=== PATIENT | female | born 1960 | race African-American/Black ===

== ENCOUNTER 2020-01-17 07:11 | Day surgery (SDC) | payer OTHER ==
[2020-01-13 17:33] VITALS: BMI 31.8
[~2020-01-17 07:11] MED LIST: BUPIVACAINE HCL/PF 0.25% (2.5MG/ML) 10 ML VIAL IJ ONE
[2020-01-17] MEDS ORDERED: MIDAZOLAM HCL 2 MG/2 ML SINGLE DOSE VIAL ONE (08:36)
[2020-01-17] MEDS ORDERED: PROPOFOL 20 ML ONE ×2 (08:37)
[2020-01-17] MEDS ORDERED: DEXAMETHASONE SOD PHOSPHATE 4 MG/1 ML VIAL ONE (08:38)
[2020-01-17] MEDS ORDERED: ONDANSETRON 4 MG/2 ML VIAL ONE (08:38)
[2020-01-17] MEDS ORDERED: oxyCODONE HCL 5 MG TABLET PO PRN ×2 (09:01)
[2020-01-17] MEDS ORDERED: ONDANSETRON 4 MG/2 ML VIAL IVPUSH PRN (09:01)
[2020-01-17] MEDS ORDERED: SODIUM CHLORIDE 0.9% P/F 10 ML VIAL IJ ONE (09:13)
[2020-01-17] MEDS ORDERED: ceFAZolin SODIUM 1 GM VIAL ONE (09:13)
[2020-01-17] MEDS ORDERED: LACTATED RINGERS SOLUTION 1,000 ML IV SCH (09:15)
[2020-01-17] MEDS ORDERED: GLYCOPYRROLATE 0.2 MG/1 ML VIAL ONE (09:49)
[2020-01-17] MEDS ORDERED: LIDOCAINE HCL 4% TOPICAL SOLN (50 ML/BOTTLE) ONE (09:49)
[2020-01-17] MEDS ORDERED: EPHEDRINE SULFATE/0.9% NACL/PF 50 MG/10 ML SYRINGE NR ONE (09:59)
[2020-01-17] MEDS ORDERED: KETOROLAC TROMETHAMINE 30 MG/1 ML VIAL ONE (10:02)
[2020-01-17] MEDS ORDERED: BUPIVACAINE HCL/PF 0.25% (2.5MG/ML) 10 ML VIAL IJ ONE (10:29)
[2020-01-17 11:51] VITALS: TEMP 97.8
[2020-01-17 12:31] VITALS: BP 113/57; PULSE 76
--- NOTE | 2020-01-17 19:48 | OP ---
DATE OF OPERATION: 01/17/2020 LOCATION: [facility]. SURGEON: Dannie Miles MD. SENIOR MAJOR GIFTS OFFICER: ARNOL Barfield. PREOPERATIVE DIAGNOSIS: 1. Left knee medial lateral meniscal tear. 2. Left knee cartilage injury. 3. Left knee synovitis. POSTOPERATIVE DIAGNOSIS: 1. Left knee medial lateral meniscal tear. 2. Left knee cartilage injury. 3. Left knee synovitis. PROCEDURE: 1. Left knee arthroscopy, partial meniscectomy medial lateral meniscus, CPT code 59185. 2. Left knee arthroscopy with chondroplasty and abrasion plasty. CPT code 04869. 3. Left knee arthroscopy synovectomy. CPT code 20137. FINDINGS: 1. Medial meniscus body and posterior horn tear inner third. 2. Lateral meniscus central body tear. 3. Synovitis patellofemoral medial lateral notch area. 4. Central 1/3 grade 2-4 changes with 2 cm x 1 cm grade 4 changes posteriorly and anteriorly but predominantly grade 2-3 changes central third of medial femoral condyle, minor grade 1-2 changes medial tibial plateau. 5. ACL and PCL intact. 6. 4 cm x 2 cm grade 4 changes posterior medial portion of lateral tibial plateau. 7. 1-2 changes patellofemoral trochlea diffusely with grade 4 changes of medial facet patella. PROCEDURE: Informed consent was obtained. The patient came to the operating room, where the lower extremity was prepped and draped in a sterile fashion. A tourniquet was placed on the upper thigh, but not inflated. Using standard arthroscopic technique, a lateral incision and portal was made to allow for introduction of the camera into the suprapatellar bursa. This was then taken to the medial joint line, where under direct visualization, a medial incision and portal was made. Excessive synovium noted in the medial, lateral and patellofemoral and notch area was removed by an upbiter, shaver and Bovie cautery. This was found to bring in inflammatory tissue into the joint surface, a source of pain and dysfunction. Probing of the medial and lateral meniscus found tears, as described in the findings. These were removed with the upbiter and shaver and taken back to a stable rim. Grade 2 to 3 degenerative changes were treated with a chondroplasty, removing all flaking surfaces with low-setting Bovie along the periphery to prevent further flaking. Grade 4 changes, as noted, were treated with an abrasoplasty, creating a bleeding surface at the bone/cartilage interface. Aggressive debridement with shaver/barbara created bleeding surface. Micro fracture also done when indicated in findings. All areas of the knee were once again reexamined. The knee was then drained and a single suture was placed in all portals. A sterile dressing was placed and the patient was transferred to the recovery room without complication. The PA listed above was present and assisted at surgery. Their presence was absolutely medically necessary for the completion of the procedure. They helped hold the arthroscopy, pass instruments (and implants when indicated) and the procedure could not have been completed without their assistance. DANNIE MILES M.D. [id number]
--- NOTE | 2020-01-21 16:14 | PATH ---
Surgical Pathology Report Patient Name: EDWARD CLIFFORD Med. Rec. #: [id number] /Age/Gender: 1960 (Age: 59) / F Account: [id number] Location: [facility] AM[facility] Taken: 01/17/2020 Received: 01/17/2020 Reported: 01/21/2020 Physicians: Dannie Tong M.D. Specimen(s) Received LEFT KNEE SHAVINGS Clinical History Derangement of left knee Final Diagnosis LEFT KNEE SHAVINGS: PORTIONS OF CARTILAGE AND FIBROSYNOVIAL TISSUE WITH FOCAL REACTIVE CHANGE. Electronically Signed Stone Melendez M.D. Gross Description Received in formalin, labeled "left knee shavings," is a 4.0 x 3.0 x 0.3 cm. aggregate of hilario-yellow soft tissue fragments. A entry level marketing representative portion is submitted in one cassette. /01/17/2020 saudi/01/17/2020
== END 2020-01-17 12:35 | disposition home or self-care (01) ==
LOC: FASU 07:11
PROVIDERS: ATTEND Orthopaedic Surgery
PROC: 0SBD4ZZ Excision of Left Knee Joint, Percutaneous Endoscopic Approach (ICD-10-PCS; 2020-01-17)
PROC: 0SBD4ZZ Excision of Left Knee Joint, Percutaneous Endoscopic Approach (ICD-10-PCS; 2020-01-17)
PROC: 0SBD4ZZ Excision of Left Knee Joint, Percutaneous Endoscopic Approach (ICD-10-PCS; principal; 2020-01-17 10:17)
DX: S83.242A Other tear of medial meniscus, current injury, left knee, initial encounter (principal); S83.282A Other tear of lateral meniscus, current injury, left knee, initial encounter; S83.8X2A Sprain of other specified parts of left knee, initial encounter; M65.862 Other synovitis and tenosynovitis, left lower leg; X58.XXXA Exposure to other specified factors, initial encounter; Y93.9 Activity, unspecified; Y92.9 Unspecified place or not applicable
CPT/HCPCS: 88304-TC; 94760